=== PATIENT | male | born 1930 | race Caucasian/White ===

== ENCOUNTER 2017-05-01 13:42 | Inpatient (IN) | payer MEDICARE, OTHER ==
[~2017-05-01] VITALS: Ht 175.3 cm; Wt 63.1 kg
[~2017-05-01 13:42] MED LIST: ASPI-973 PO; CALC0.257 PO; CHOL100045 PO; DIAZ5TAB PO; DIPH25CA6 PO; FERR325C PO; GABA-504 PO; INSU100I SUBQ; INSU100I13 SUBQ; LEVO50TA6 PO; MULT-1018 PO; SIMV10TA4 PO; TAMS0.4C98 PO
[2017-05-01 13:45] VITALS: BP 150/74; PULSE 79; RESP 18; O2SAT 99
[2017-05-01 14:59] LABS: BASOPHILS % (AUTO) 0.4 % (0-3); EOSINOPHILS % (AUTO) 0.1 % (0-5); MONOCYTES % (AUTO) 7.5 % (4-12); Mean Corpuscular Hemoglobin 31.1 pg (27.0-35.0); Mean Corpuscular Volume 94.1 fL (81-100); NEUTROPHILS % (AUTO) 71.9 % (40-74); Platelet Count 349 bil/L (150-400)
--- NOTE | 2017-05-01 15:15 | ED.REPORT ---
HPI-General Illness Date of Service May 01, 2017 ED Provider: Christopher Barney MD An 86 year old male with a history of end stage renal disease, lymphoma, diabetes and hypertension presents to the ED complaining of possible cellulitis. The pt noticed redness around the fistula site in his left arm four days ago. He was seen in an ED three days ago and prescribed Keflex and doxycycline. Despite taking these as prescribed, the redness and pain have worsened and he has been experiencing decreased appetite, nausea and vomiting. He denies chest pain, dysuria, fever or chills. The fistula was placed 18 months ago but the pt is not on dialysis yet. Nursing Notes Stated Complaint: POSS CELLULITIS Chief Complaint: Skin Rash/Abscess Nursing Notes Reviewed: Yes Allergies: Coded Allergies: No Known Allergies (Verified Allergy, Unknown, 11/15/16) Scheduled Aspirin (Aspirin) 81 Mg Tablet 81 MG PO DAILY Calcitriol (Rocaltrol) 0.25 Mcg Capsule 1 MCG PO DAILY Cephalexin (Cephalexin) 250 Mg Capsule 250 MG PO TID Cholecalciferol (Vitamin D3) (Vitamin D) 1,000 Unit Capsule 1,000 UNIT PO DAILY Doxycycline Monohyd (Doxycycline Monohyd) 100 Mg Tablet 100 MG PO BID Gabapentin (Gabapentin) 400 Mg Capsule 400 MG PO BID Insulin Glargine (Lantus U100 Solostar Insulin Pen) 100 Unit/1 Ml Insuln.pen 10 UNIT SUBQ QAM Levothyroxine (Levothyroxine) 50 Mcg Tablet 50 MCG PO DAILY Multivitamin (Multi Vitamin Daily) 1 Each Tablet 1 EACH PO DAILY Sertraline HCl (Sertraline) 50 Mg Tablet 50 MG PO DAILY Simvastatin (Simvastatin) 10 Mg Tablet 20 MG PO HS Sodium Bicarbonate (Sodium Bicarbonate) 650 Mg Tablet 650 MG PO TID Tamsulosin (Flomax) 0.4 Mg Capsule 0.4 MG PO DAILY Scheduled PRN Diazepam (Valium) 5 Mg Tablet 5 MG PO HS PRN PRN Insomnia Insulin Aspart (NovoLOG U-100 Pen) 100 Unit/Ml Insuln.pen 0-5 UNITS SUBQ TIDWM PRN PRN sliding scale General Time Seen by : 15:14 Chief Complaint Other (Possible cellulitis) Hx Obtained From: Patient Arrived By: Walk-in Sudden in Onset?: No Symptom Duration: Since onset Recent Healthcare: No recent hospitalization, Recent doctor visit Past Medical History Past Medical History 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, in remission, 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 Chronic kidney disease Stage 4 Celiac Disease Diabetes mellitus type II with neuropathy, insulin dependent Hypothyroidism Hyperlipidemia Hypertension CAD with stenting of the RCA Chronic prostatitis Prostate cancer GERD Gastric ulcer Past Surgical History EGD - October 2008 Esophageal dilation - October 2008 TURP Cardiac catheterization with placement of drug eluting stent to the proximal segment of the RCA - October 2008 Fistua L arm Family History non-contributory Smoking History Never Smoker Social History Alcohol Use: 1-3 per week Drug Use: Denies drug use Other Social History: Lives in [facility] Ambulatory Status Independent Review of Systems decreased appetite Full Review of Systems Constitutional: Denies: Chills, Fever Respiratory: Denies: Non-productive cough, Shortness of breath Cardiovascular: Denies: Chest pain GI: Reports: Nausea, Vomiting Musculoskeletal: Reports: Extremity pain (left arm), Denies: Back pain Skin: Reports Rash Complete sys rev & neg: except as marked. Physical Exam Vital Signs Vital Signs Date Time Temp Pulse Resp B/P Pulse Ox O2 Delivery O2 Flow Rate FiO2 05/01/17 13:45 35.4 79 18 150/74 99 Room Air Initial VS: Reviewed General/Constitutional: Awake, Alert Head / Eyes: Atraumatic, Normocephalic, PERRL, EOMI ENT: Atraumatic, Airway patent, Mucous membranes moist Neck: Atraumatic, Supple, Full range of motion Respiratory / Chest: Atraumatic, Breath sounds NL, Breath sounds = bilat, No respiratory distress Cardiovascular: Heart rate NL, Regular rhythm, Heart sounds NL Abdomen: Atraumatic, Soft, Non-tender Back: Atraumatic, Full range of motion Upper Extremities Upper Extremity / MS: Neurologic intact, Vascular intact fistula, left mid biceps erythema of the flexor aspect of the left arm from the mid biceps to just distal to the elbow palpable pulse axillary adenopathy Lower Extremity / Pelvis / MS: Atraumatic, Full range of motion Skin: Warm, Dry Neurologic: Oriented X3, Speech NL, No motor deficits, No sensory deficits Psychiatric: Affect NL, Mood NL Interpretation & Diagnostics Interpretation & Diagnostics: Dialysis Shunt Duplex US: no DVT AV fistula mostly clotted Lab Results Interpretation Result Diagram: 05/01/17 1456 05/01/17 2120 Test 05/01/17 14:56 White Blood Count 7.2th/mm3 (3.8-10.1) Red Blood Count 3.70mil/mm3 (4.40-5.80) Hemoglobin 11.5g/dL (13.8-17.2) Hematocrit 34.8% (41.0-50.0) Mean Corpuscular Volume 94.1fL (81-100) Mean Corpuscular Hemoglobin 31.1pg (27.0-35.0) Mean Corpuscular Hemoglobin Concent 33.0% (32.0-37.0) Red Cell Distribution Width 14.1% (12.3-15.4) Platelet Count 349bil/L (150-400) Neutrophils (%) (Auto) 71.9% (40-74) Lymphocytes (%) (Auto) 20.0% (14-46) Monocytes (%) (Auto) 7.5% (4-12) Eosinophils (%) (Auto) 0.1% (0-5) Basophils (%) (Auto) 0.4% (0-3) Osmolality 334 (275-300) Phosphorus Level 6.0mg/dL (2.5-4.9) Total Bilirubin 0.5mg/dL (0.0-1.2) Aspartate Amino Transf (AST/SGOT) 25U/L (0-50) Alanine Aminotransferase (ALT/SGPT) 26U/L (0-44) Alkaline Phosphatase 149U/L (25-160) Troponin T 0.041ug/L (0.0-0.011) Total Protein 6.8g/dL (6.4-8.4) Albumin 3.8g/dL (3.4-5.0) Ketones Small (Negative) Lab Results Interpretation: venous pH: 7.212 ECG Interpretation ECG Interpretation: normal sinus rhythm with a rate of 74 prolonged ND interval left axis deviation Time: 14:37 Interpreted by: ED physician X-Ray Chest Interpretation Chest Xray Interpretation: IMPRESSION: No acute disease Dictated by: John Alexander M.D. on 05/01/2017 at 15:28 Approved by: John Alexander M.D. on 05/01/2017 at 15:29 Interpretation / Wet Read by: Interpret - Radiologist Re-Eval/Medical Decision Med Decision/Clinical Course 86-year-old male with chronic kidney disease who has dialysis access in place that is not presently being used. The involved arm appears cellulitic, he is also noted to have thrombosis of the AV fistula. A vein thrombosis of the upper Michael been ruled out. He is hemodynamically stable and nontoxic, we have obtained blood cultures and started vancomycin and Zosyn. We noted a marked hyperglycemia and acidosis, diabetic ketoacidosis was considered however overall the patient appears nontoxic is not tachypneic and revealed his acidosis was much more likely related to renal disease. An insulin drip was started and nephrology was consulted. The also given IV fluids. Is admitted to the hospitalist service with nephrology consultation. Source of Hx: Old records Time of Eval: 16:12 Patient Status: Condition improved Re-Evaluation/Progress Note: Pt rechecked, who is restinng comfortable. The diagnosis and plan for admission are discussed. The pt understands and agrees with the plan. All questions are addressed at this time. Consultation #1: Referral / Consult Name: Madelyn Olivas MD Consulted With: Nephrology Call Returned at: 16:00 Note: Consulted with Dr. Davis, nephrology, regarding pt's case. Dr. Davis agrees to consult and will see the pt in the ED. Consultation #2: Referral / Consult Name: Madelyn Olivas MD Call Returned at: 16:31 Chemical Pumper: Agrees with eval, Agrees with plan Note: Spoke with Dr. Davis regarding pt's case. Dr. Davis agrees with the evaluation and recommends admission. Consultation #3: Referral / Consult Name: Prieto Collier MD Consulted With: Hospitalist Call Returned at: 17:48 Chemical Pumper: Agrees with eval, Agrees with plan, Accepts admit Note: Spoke with Dr. Collier, hospitalist, regarding pt's case. Dr. Collier agrees with the evaluation and agrees to admit the pt. Counseled Regarding: Diagnosis, Lab results, Need for admission Discharge & Departure Primary Impression: Cellulitis Site of cellulitis: extremity Site of cellulitis of extremity: upper extremity Laterality: left Qualified Code: L03.114 - Cellulitis of left upper limb Additional Impressions: Hyperglycemia Clotted dialysis access Encounter type: initial encounter Qualified Code: T82.49XA - Other complication of vascular dialysis catheter, initial encounter Disposition: ADMITTED TO HOSPITAL (ERASED) Discharge Condition All VS Reviewed: Yes Condition: Stable Referrals: Yovany Diamond MD (PCP) Jodi Menchaca MD Attestation Portions of this note were transcribed by Johnnie Moreau. Dr. Ector Gaines personally performed the history, physical exam and medical decision-making; I reviewed and confirmed the accuracy of the information in the transcribed note. Signed by: Stefan Zendejas, 05/01/2017 and 2014. copies to: Jodi Menchaca MD; Yovany Diamond MD, Donald L MD May 01, 2017 15:15 JOHNNIE MOREAU May 01, 2017 15:26 complication of vascular dialysis catheter, initial encounter Disposition: ADMITTED TO HOSPITAL (ERASED) Discharge Condition All VS Reviewed: Yes Condition: Stable Referrals: Yovany Diamond MD (PCP) Jodi Menchaca MD Attestation Portions of this note were transcribed by Johnnie Moreau. Dr. Ector Gaines personally performed the history, physical exam and medical decision-making; I reviewed and confirmed the accuracy of the information in the transcribed note. Signed by: Stefan Zendejas, 05/01/2017 and 1516. copies to: Jodi Menchaca MD; Yovany Diamond MD, Donald L MD May 01, 2017 15:15 JOHNNIE MOREAU May 01, 2017 15:26
--- NOTE | 2017-05-01 15:30 | DRSVH ---
PROCEDURE: X-RAY CHEST ONE VIEW, PORTABLE ([id number]) INDICATIONS: sepsis TECHNIQUE: One view of the chest was acquired. COMPARISON: [facility], CR, XR CHEST 1VW (PORTABLE), 04/30/2016, 14:06. FINDINGS: Surgical changes and devices: None. Lungs and pleura: No pleural effusions or pneumothorax. Lungs are clear. Diffuse scarring/atelectas is Mediastinum: Mediastinal contours appear normal. Heart size is normal. Bones and chest wall: No suspicious bony lesions. Overlying soft tissues appear unremarkable. Late ral curvature of the spine IMPRESSION: No acute disease Dictated by: John Alexander M.D. on 05/01/2017 at 15:28 Approved by: John Alexander M.D. on 05/01/2017 at 15:29
[2017-05-01 15:44] LABS: Magnesium 1.4 mg/dL (1.6-2.6); TROPONIN T 0.041 ug/L (0.0-0.011)
[2017-05-01] MEDS ORDERED: Sodium Bicarb 8.4% (10 mEq) 1 mEq/mL 10 mL Syringe IVPUSH ONE (16:05)
[2017-05-01] MEDS ORDERED: 0.9% Sodium Chloride 1,000 ML IV ONE ×2 (16:05→16:45)
[2017-05-01] MEDS ORDERED: Piperacillin-Tazo 3.375 Gm Inj 3.375 GM in Dextrose 5% Minibag Plus 50 ML IV ONE (16:05)
[2017-05-01] MEDS ORDERED: Insulin Human REGular Inj 100 UNIT in 0.9% Sodium Chloride-Pha MIX 100 ML IV SCH (16:09)
--- NOTE | 2017-05-01 16:32 | ABG ---
DateTimeAnalyzed 16:23:00 -_ pH ____7.212 - pCO2 ___33.3__ -mmHg pO2 ___39.6__ -mmHg HCO3- ___12.9__ -mmol/L ABE __-13.7__ -mmol/L tHb ___12.0__ -g/dL O2Hb ___63.9__ -% COHb ____1.7__ -% MetHb ____1.4__ -% sO2 ___65.9__ -% FIO2 ___21.0__ -% Drawn By NSG - Date/Time Notified____ 16:31:00 -_ Notified Whom ___DR. SLACK - Age 78 -years B 758 -mmHg tO2 ___10.8__ -Vol% Prieto test N/A -
[2017-05-01] MEDS ORDERED: SODI650T PO (16:50)
[2017-05-01] MEDS ORDERED: CEPH250C PO (16:50)
[2017-05-01] MEDS ORDERED: CALC0.257 PO (16:50)
[2017-05-01] MEDS ORDERED: SERT50TA9 PO (16:50)
[2017-05-01] MEDS ORDERED: DOXY-232 PO (16:50)
[2017-05-01 17:04] VITALS: BP 148/92; PULSE 76; RESP 20; O2SAT 97
[2017-05-01 17:08] LABS: APPEARANCE,URINE CLEAR (CLEAR,HAZY); COLOR,URINE STRAW (YELLOW); OCCULT BLOOD,URINE SMALL (NEGATIVE); PH,URINE 5.5 (5.0-8.0); UROBILINOGEN,URINE NORMAL (NORMAL)
[2017-05-01 17:21] VITALS: BP 148/92; PULSE 76; RESP 20; O2SAT 97
--- NOTE | 2017-05-01 17:30 | DRSVH ---
PROCEDURE: US DUPLEX DOPPLER OF DIALYSIS SHUNT ([id number]) INDICATIONS: swelling, erythema, please check fistual also TECHNIQUE: Color and pulse Doppler interrogation was performed of the upper extremity arteriovenous fistula, wit h image documentation. COMPARISON: None. FINDINGS: Flow the brachial artery proximal to the anastomosis is triphasic and 114 cm/s. The flow of the brach ial artery distal to the anastomotic site is triphasic and 145 cm per sec. The fistula show some biphasic flow and decreased velocity of 43 cm/s. The distal to the anastomosis the venous limb shows occlusive clot. IMPRESSION: There is clot in the venous limb of the vessels involved with a graft. This involves the cephalic vein with clot along the level of the arm. More centrally towards the shoulder the cephalic vein becomes patent and compressible. Dictated by: Derick Baig M.D. on 05/01/2017 at 17:21 Approved by: Derick Baig M.D. on 05/01/2017 at 17:28
[2017-05-01] MEDS ORDERED: Senna-Docusate 8.6-50 mg Tablet PO PRN (17:40)
[2017-05-01] MEDS ORDERED: Polyethylene Glycol (PEG) 17 Gm Powder PO PRN (17:40)
[2017-05-01] MEDS ORDERED: Alum-Mag Hydrox-Simeth 30 mL Suspension PO PRN (17:40)
[2017-05-01] MEDS ORDERED: Ondansetron 2 mg/mL 2 mL Inj IVPUSH PRN (17:40)
--- NOTE | 2017-05-01 17:51 | CONS ---
[address] [address] CONSULTATION REPORT PATIENT: HECTOR DEL RIO : 1930 MR#: [id number] ADMIT: 05/01/2017 JOB ID: [id number] DATE OF SERVICE: 05/01/2017 NEPHROLOGY CONSULTATION: REQUESTING PHYSICIAN: Christopher Barney MD REASON FOR CONSULTATION: Management of electrolyte disturbance. CHIEF COMPLAINT: Left arm swelling and redness. 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 He is the patient of Dr. Menchaca. He had history of chronic kidney disease stage 4. He has had left AV fistula for almost two years. It has not been used. His last visit with Dr. Menchaca was in March. At that time his serum creatinine was 2.67. According to Dr. 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 He had history of intestinal lymphoma and he received chemotherapy; the last treatment was eight years ago. He has been in remission since. Last visit with Dr. Menchaca he noted that he had a functioning left upper AV fistula. He reported that he has noticed redness and swelling around the fistula site for five days prior to the admission. He went to the Urgent Care three days ago and was prescribed Keflex and doxycycline. The patient has not seen any improvement despite taking the medications. He has experienced nausea and vomiting x3. He has poor appetite. His blood sugar was elevated; at home was 599. The patient not feeling well, therefore he came to the hospital for further investigation. Apparently his initial vitals showed a temperature of 35.4, blood pressure 150/74. His initial blood work showed sodium of 125, potassium of 5.9, blood sugar of 716. Bedside Doppler of the fistula reporting swelling soft tissue. No cysts or abscess formation. Reporting clotted AV fistula. Initial BUN and creatinine were 72 and 3.19, respectively. I have discussed with Dr. Banrey the ED physician we are planning to start IV insulin drip and fluid replacement. The patient will be started on broad-spectrum IV antibiotics as well. PAST MEDICAL HISTORY: 1. Chronic kidney disease stage 4. Last serum creatinine in March was 2.67, estimated GFR of 20 mL/minute per 1.73 mm2. 2. Intestinal lymphoma status post bowel resection. 3. Type 2 diabetes with neuropathy. He is insulin-dependent. 4. Hypertension. The patient has been diagnosed with type 2 diabetes for at least 40 years. 5. Dyslipidemia. 6. Coronary artery disease, status post stenting. 7. Prostate cancer. 8. GERD. 9. Gastric ulcers. PAST SURGICAL HISTORY: 1. Status post AV fistula on the left upper extremity in May 2015. 2. Status post TURP. 3. Esophageal dilatation. 4. Cardiac catheterization with placement of drug-eluting stent of the proximal segment of RCA in October 2008. FAMILY HISTORY: No kidney disease in the family. Negative for cardiac disease. SOCIAL HISTORY: Denies current use of tobacco or illicit drugs. He drinks socially. He drinks one beer once a week. MEDICATIONS: Aspirin, calcitriol, Keflex, vitamin D3, Valium, doxycycline, gabapentin, insulin, NovoLog, Lantus, levothyroxine, multivitamin, sertraline, simvastatin, sodium bicarbonate, tamsulosin. ALLERGIES: No known drug allergies. REVIEW OF SYSTEMS: Fourteen point review of system was performed. PHYSICAL EXAMINATION: Vitals: Temperature 35.4, pulse 79, respiratory rate 18, blood pressure 150/74, O2 sat 99% on room air. General appearance: Awake, alert, oriented x3. No acute distress. HEENT: Mild pallor. Anicteric sclerae. Atraumatic. Dry mucous membranes. PERRLA. No JVD. No lymphadenopathy. No thyroid enlargement. Heart: Regular rhythm. Normal S1, S2. No murmurs, rubs, or gallops. Lungs: Clear to auscultation bilaterally. No wheezing. No rhonchi. Abdomen: Soft, scaphoid abdomen. Nontender, nondistended. No hepatosplenomegaly. Extremities: No lower extremity edema. Positive for swelling on the left upper extremity and positive for erythema around the AV fistula. LABORATORY: CBC: Hemoglobin 11.5, WBC 7.2, platelets 349. Sodium 145, potassium 5.9, chloride 85, bicarb 9, BUN 72, creatinine 3.19. IMAGING: Chest x-ray: No acute disease. ASSESSMENT: 1. Acute kidney injury on chronic kidney disease stage 4 secondary to intravascular volume depletion. 2. Hyperosmolar hyponatremia. Serum osmo of 334. 3. Hyperkalemia secondary to insulin insufficiency, hyperglycemia, and metabolic acidosis. 4. Hyperglycemia. Suspected DKA. 5. Skin and soft tissue infection. 6. Type 2 diabetes. 7. History of hypertension. 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 9. Anion gap metabolic acidosis secondary to ketoacidosis and uremia. Current pH is 7.2. We do not have a sodium bicarb available at the moment and sodium acetate has to be mixed in the D5 water which is not feasible given the hyperglycemia. PLAN: Per renal standpoint, we would like to restore intravascular compartment by giving normal saline 1 L bolus and run at 150 mL/hour. We will order blood culture x2. He will receive broad-spectrum IV antibiotics. I would recommend to start insulin drip. We will repeat his BMP later on tonight. I do not think he needs urgent hemodialysis. We will continue our medical management first.
[2017-05-01] MEDS ORDERED: 0.9% Sodium Chloride 1,000 ML IV SCH (18:00)
--- NOTE | 2017-05-01 18:33 | PCM.HPMED ---
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 Patient has been seen twice at the clinic and was prescribed some Keflex as well as doxycycline with improvement of his cellulitis however, this morning his noticed that his left arm was significantly more erythematous and the patient stated it was much more painful. Patient denies any fevers, chills, drenching sweats but has noted nausea after starting his antibiotics and has been vomiting quite frequently. He has also noticed a decrease in his appetite and decreased by mouth intake. The patient is not currently on dialysis and he is followed by . Per the patient measured his blood sugar at home it was 599. In the emergency department his vital signs were stable. His laboratory evaluation was notable for a blood sugar of 716, venous pH of 7.2, potassium of 5.9, and anion gap of 31 and normal lactate and worsening creatinine of 3.19. He was initiated on 2 L normal saline, vancomycin and Zosyn. Dr. Davis of nephrology was consulted by emergency department for evaluation of his worsening kidney function. Review of Systems: A comprehensive review of systems was conducted with the patient and found to be negative except as above in the History of Present Illness. Allergies Coded Allergies: No Known Allergies (Verified Allergy, Unknown, 11/15/16) Home Medications Bethel Wilkes N. [id number] 1930 04/29/2017 01:00 PM 10/18 Start Date Medication Directions Stop Date 12/13/2011 aspirin 81 mg Tab take 1 tablet (81MG) by oral route every day 09/20/2010 Calcio Jade 500 mg Tab calcitriol 0.25 mcg capsule take 1 capsule by oral route every 2 days 04/28/2017 cephalexin 250 mg tablet take 1 tablet by oral route every 8 hours 05/04/2017 12/10/2016 diazepam 5 mg tablet take 1 tablet by oral route every bedtime as needed insomnia 04/28/2017 doxycycline monohydrate 100 mg tablet take 1 tablet by oral route 2 times every day 05/04/2017 08/06/2016 Lantus Solostar 100 unit/mL (3 mL) subcutaneous insulin pen inject 9 by subcutaneous route as per insulin protocol 07/14/2009 Multiple Vitamins Tab take 1 tablet by ORAL route every day with food 07/02/2016 NEURONTIN 400MG CAPSULES CAPSULE TAKE 1 CAPSULE BY ORAL ROUTE 2 TIMES EVERY DAY 08/22/2016 NOVOLOG FLEXPEN 100U/ML 3ML MG INJECTABLE INJECT BY SUBCUTANEOUS ROUTE 2 TO 5 UNITS BEFORE MEALS FOR DIABETES. 09/11/2012 One Touch Ultra Test Strips apply by Combination route 5 times every day 09/18/2016 OneTouch Ultra Test strips apply by Combination route 5 times every day 08/06/2016 sertraline 50 mg tablet take 1 tablet by oral route every morning for mood. 11/14/2016 simvastatin 20 mg tablet take 1 tablet by oral route every day in the evening sodium bicarbonate 650 mg tablet take 1 Capsule by Oral route 3 times every day 08/22/2016 SURE CMFRT 31G 12/27 PEN NEEDLES MG INJECTABLE INJECT DIRECTED 02/20/2017 SYNTHROID 0.05MG TABLET TABLET TAKE 1 TABLET (50MCG) BY ORAL ROUTE EVERY DAY FOR THYROID 11/06/2016 tamsulosin 0.4 mg capsule take 1 capsule by oral route every day 1/ 2 hour following the same meal each day Vitamin D3 take 2 (600 unit) tablets daily PMH Hypertension Hypothyroidism CKD (chronic kidney disease) Coronary artery disease status post stent Type 2 diabetes mellitus with stage 4 chronic kidney diseasee) Hyperlipidemia Prostate cancer on hormone suppression IV diffuse large B-cell lymphoma in remission Surgical History TURP Cardiac cath Mohs surgery Bowel resection Family History Brother has diabetes mellitus. Social History Hx Alcohol Use: Yes (1 beer a week) Hx Substance Use: No Hx Tobacco Use: No Smoking Status: Never Smoker Exam Vital Signs Vital Sign - Last Date Time Temp Pulse Resp B/P Pulse Ox O2 Delivery O2 Flow Rate FiO2 05/01/17 17:21 35.4 76 20 148/92 97 Room Air Exam General: No acute distress, well-developed, well-nourished, appropriately interactive HEENT: Normocephalic, atraumatic. External ears without defect. Pupils equal, round, and reactive to light and accommodation. Anicteric sclerae, moist conjunctivae, and no lid lag. Oropharynx free of erythema and cobble stoning with moist mucosa. Neck: Supple with full range of motion. No jugular venous distension. No bruits. No lymphadenopathy or thyromegaly. Cardiovascular: Regular rate and rhythm with soft systolic murmur. Pulmonary: Clear to auscultation bilaterally with no crackles, wheezes, or rhonchi. Normal respiratory effort with no use of accessory muscles. Abdomen: Bowel tones present. Thin. Soft, nontender, nondistended. No hepatosplenomegaly or masses appreciated. Extremities: No clubbing, cyanosis. Left arm fistula without bruit, with erythema and warmth. Skin: Normal temperature, turgor, and texture except as noted above. Neurological: Cranial nerves grossly intact. Normal muscle strength, tone, and bulk. Reflexes, coordination, and sensory function within normal limits. No known gait impairment. Psychiatric: Normal mood and affect. Alert and oriented to person, place, and time. Lab and Diagnostics Labs Anion gap 31 Lactic acid 1.8 Magnesium 1.4 Ketones in the blood Result Diagram: 05/01/17 1456 05/01/17 1456 X-Rays, CTs and MRIs X-RAY CHEST ONE VIEW, PORTABLE IMPRESSION: No acute disease Dictated by: John Alexander M.D. on 05/01/2017 at 15:28 US DUPLEX DOPPLER OF DIALYSIS SHUNT IMPRESSION: There is clot in the venous limb of the vessels involved with a graft. This involves the cephalic vein with clot along the level of the arm. More centrally towards the shoulder the cephalic vein becomes patent and compressible. Dictated by: Derick Baig M.D. 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 Diabetic ketoacidosis secondary to left arm cellulitis in a type II diabetic, present remission, active -Anion gap 31, venous pH 7.2 -0.9% NaCL at 250 mL/hr -When blood glucose <250 mg/dL AND anion GAP is > 12 switch to D5 NS at 150mL/ hr, contact provider if glucose is consistently <150 for 1 hour -0.1 U/kg/hr regular insulin continued until AG <12. If serum glucose does not decrease by 50-70 mg/dL in 1 hr after starting drip double IV insulin infusion every hour until there is a decrease of 50-70 mg/dL of glucose. -When glucose reaches 200 change insulin rate to 0.02-0.05 U/kg/hr to keep glucose between 150-200 until anion gap is <12. -When anion gap <12 call provider for subcutaneous insulin orders. -WAIT 1 HOUR BEFORE STOPPING THE INSULIN DRIP AFTER GIVING LONG ACTING INSULIN -BMP Q4 while anion gap >12 -If K <4.5, contact provider -DO NOT STOP PROTOCOL DUE TO POTASSIUM DECLINE UNLESS IT DROPS TO BELOW 3 Acute kidney injury on chronic kidney disease stage IV secondary to prerenal azotemia secondary to DKA with polyuria, vomiting and poor by mouth intake, present on admission, active -Continue with IV fluids as above. We will continue to monitor BMP. -Discussed case with Dr. Davis, and patient does not require dialysis at this time Left arm cellulitis, present on admission, active -Blood cultures obtained -Procalcitonin ordered -Patient given Vancomycin and Zosyn in the ED. Will continue Vancomycin but will switch to Cefepime given the patient's OG. 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 Davis, no indication for heparinization at this time -Patient will need to undergo fistula repair tomorrow by interventional radiology. Elevated troponin of uncertain significance, present on admission, active -Likely secondary to demand ischemia from DKA and cellulitis. -We will recheck tomorrow. Patient is denying any chest pain. CODE STATUS: DNR/DNI, confirmed with the patient today. Patient is admitted under inpatient status with expected length of stay greater than 2 midnights due to severity of presenting symptoms, risk of adverse event, and complexity of treatment plan. Pain Evaluation: Adequate Pain Control VTE Prophylaxis: Sub-Q Heparin (Unfractionated) Resuscitation Status: DNR/DNI:Do Not Resuscitate/Intubate Time spent 60 minutes Attending Statement The patient was seen and examined with staff. Agree with all attached documentation. Chanel Stoll DO May 01, 2017 17:51 Prieto Collier MD May 02, 2017 16:47
[2017-05-01] MEDS ORDERED: Cefepime 1,000 MG in Dextrose 5% Minibag Plus 50 ML IV SCH (19:00)
[2017-05-01 19:34] LABS: Magnesium 1.4 mg/dL (1.6-2.6)
[2017-05-01 19:47] VITALS: BP 128/69; PULSE 88; RESP 20; O2SAT 97
[2017-05-01] MEDS ORDERED: Magnesium Sulf 2 Gm/50mL Water 2 GM in IV Premix 1 EACH IV ONE (20:05)
[2017-05-01] MEDS ORDERED: HYDROcodone-APAP 5-325 mg Tablet PO PRN (20:05)
[2017-05-01] MEDS: Insulin Human REGular 100 Units/100 mL NS IV SCH ×2 (20:25)
[2017-05-01 20:30] VITALS: BP 136/64; PULSE 80; RESP 15; O2SAT 98
[2017-05-01] MEDS ORDERED: Cefepime Inj 2,000 MG in Dextrose 5% Minibag Plus 100 ML IV SCH (20:30)
[2017-05-01] MEDS: 0.9% Sodium Chloride 1,000 ML IV SCH (20:47)
[2017-05-01] MEDS: Heparin 5,000 Unit/mL Inj SUBQ SCH (21:01)
[2017-05-01] MEDS: CEFEPIME IV SCH (21:25)
[2017-05-01] MEDS: SODIUM CHLORIDE 0.9% IV SCH (21:25)
--- NOTE | 2017-05-01 22:02 | PCM.CONPHA ---
Assessment/Plan Assessment/Plan Pharmacy Kinetic Dosing Vancomycin Indication: CELLULITIS Vanc goal trough: 10-15 mcg/mL Pt wt: 65.9 kg Other ABX: CEFEPIME Cultures: BLOOD/MRSA SCr: 3.19 mg/dL Assessment/Plan: - Loading dose of Vancomycin 750 mg given -Will continue Vancomycin 750 mg Q48H with random trough scheduled 05/02 @0500 Pharmacy appreciates consult and will continue to monitor. Cleopatra Kerns PharmD May 01, 2017 22:02
[2017-05-01] MEDS ORDERED: D5W1/2NS 1,000 mL IV PRN (22:05)
[2017-05-01 23:12] VITALS: BP 120/54; PULSE 66; RESP 15; O2SAT 99
[2017-05-02] MEDS: 0.9% Sodium Chloride 1,000 ML IV SCH ×5 (00:23→14:15)
[2017-05-02] MEDS: Insulin Human REGular 100 Units/100 mL NS IV SCH ×2 (00:25)
[2017-05-02 03:28] VITALS: BP 121/48; PULSE 61; RESP 14; O2SAT 99
--- NOTE | 2017-05-02 04:45 | NUR ---
Admit/DKA 2029 - Patient admitted to room 2020, admision completed and oriented to room, no distress noted, last blood sugar was 748 before leaving ED, pharmacy notified to mix all medications in NS instead of D5W, insulin gtt infusing at 13 units/hr, see nursing flow sheet for fluids and rates of IVF and insulin gtt. No bruit felt in left arm fistula, patient stated he has no pain in left arm, just sore and it just hurts if it gets bumped. 0255, BS down to 90 and insulin gtt turned off for a bit, rechecked and BS 111 and 133, D10 rate adjusted per protocol, last corrected anion gap 19.5 with Albumin 3.8. NS @ 250ml/hr infusing, patient slept most of the night, very pleasant and cooperative, no needs at this time, will continue to monitor, no distress noted, VSS, sats 99% on RA.
[2017-05-02] MEDS ORDERED: Vancomycin Serum Trough XX ONE (05:00)
[2017-05-02 07:21] VITALS: BP 130/68; PULSE 57; RESP 15; O2SAT 100
--- NOTE | 2017-05-02 07:54 | DRSVH ---
PROCEDURE: US RENAL SONOGRAM INDICATIONS: OG TECHNIQUE: Real-time scanning was performed of the kidneys and bladder, with image documentation. COMPARISON: [facility], [place], 06/29/2015 renal ultrasound. 02/06/2013 CT FINDINGS: Kidneys: Kidneys are normal in size. Right kidney measures 8.1 cm long; left kidney measures 10.2 c m long. Right renal cortical thickness is 0.7 cm; left renal cortical thickness is 0.9 cm. Renal co rtical echotexture is normal. No hydronephrosis or nephrolithiasis. No suspicious solid mass lesion s. Simple right renal cyst measuring 7 mm. Bladder: The patient voided immediately prior to the study therefore no prevoid bladder volume was ob tained. Throughout the examination, the bladder measured 74-108 mL. Pre-void images demonstrate no i ntraluminal masses or stones. Ureteral jets identified. Miscellaneous: No free pelvic fluid. There is a complex right pelvic fluid filled mass measuring 6. 2 x 2.6 x 3.8 CM. IMPRESSION: 1. Renal atrophy right greater than left. No hydronephrosis, ureterectasis, or calculi. 2. 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 Dictated by: Ritesh Becker M.D. on 05/02/2017 at 7:47 Approved by: Ritesh Becker M.D. on 05/02/2017 at 7:51
[2017-05-02] MEDS: Vancomycin Dose per Pharmacist XX SCH (08:29)
[2017-05-02] MEDS: Heparin 5,000 Unit/mL Inj SUBQ SCH ×2 (08:29→20:59)
[2017-05-02 09:10] LABS: Phosphorus 4.2 mg/dL (2.5-4.9)
[2017-05-02] MEDS: SODIUM CHLORIDE 0.9% IV SCH ×2 (10:00→20:58)
[2017-05-02] MEDS: CEFEPIME IV SCH ×2 (10:00→20:58)
--- NOTE | 2017-05-02 12:02 | PCM.PNNEPH ---
Subjective Date of Service May 02, 2017 Subjective Less swelling on left arm. (+) redness/warmth. Kidney function and BS have improved. Exam Vital Signs Vital Sign - Last Date Time Temp Pulse Resp B/P Pulse Ox O2 Delivery O2 Flow Rate FiO2 05/02/17 07:21 36.4 57 15 130/68 100 Room Air Intake and Output 05/01/17 05/01/17 05/02/17 Cumulative From/Thru 15:00 23:00 07:00 05/01/17 13:45 - 05/02/17 04:42 Intake Total 1000 ml 3123 ml 4123 ml Output Total 400 ml 1175 ml 1575 ml Balance 600 ml 1948 ml 2548 ml Intake Oral 480 ml 480 ml IV Total 1000 ml 2643 ml 3643 ml Output Urine Total 400 ml 1175 ml 1575 ml # Voids 1 1 # Bowel Movements 0 0 Exam General appearance: Awake, alert, oriented x3. No acute distress. HEENT: Mild pallor. Anicteric sclerae. Atraumatic. Dry mucous membranes. PERRLA. No JVD. No lymphadenopathy. No thyroid enlargement. Heart: Regular rhythm. Normal S1, S2. No murmurs, rubs, or gallops. Lungs: Clear to auscultation bilaterally. No wheezing. No rhonchi. Abdomen: Soft, scaphoid abdomen. Nontender, nondistended. No hepatosplenomegaly. Extremities: No lower extremity edema. Positive for swelling on the left upper extremity and positive for erythema around the AV fistula. Lab and Diagnostics Result Diagram: 05/01/17 1456 05/02/17 1020 X-Rays, CTs and MRIs X-RAY CHEST ONE VIEW, PORTABLE IMPRESSION: No acute disease Dictated by: John Alexander M.D. on 05/01/2017 at 15:28 US DUPLEX DOPPLER OF DIALYSIS SHUNT IMPRESSION: There is clot in the venous limb of the vessels involved with a graft. This involves the cephalic vein with clot along the level of the arm. More centrally towards the shoulder the cephalic vein becomes patent and compressible. Dictated by: Derick Baig M.D. on 05/01/2017 at 17:21 Plan Impression 1. Acute kidney injury on chronic kidney disease stage 4 secondary to intravascular volume depletion. 2. Hyperosmolar hyponatremia. resolved. 3. Hyperkalemia secondary to insulin insufficiency, hyperglycemia, and metabolic acidosis. Resolved. 4. DKA. 5. Skin and soft tissue infection. 6. Type 2 diabetes. 7. History of hypertension. 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 9. Anion gap metabolic acidosis secondary to ketoacidosis and uremia. 10. Clotted AVF. Plan: Continue supportive treatment. Continue NS, IV abx. Once infection subsides, will consult IR to perform fistulogram and angioplasty. Madelyn Olivas MD May 02, 2017 12:02
[2017-05-02] MEDS: Vancomycin Inj 500 MG in 0.9% Sodium Chloride 100 ML IV SCH (12:12)
[2017-05-02 12:14] VITALS: BP 122/43; PULSE 57; RESP 17; O2SAT 99
--- NOTE | 2017-05-02 13:28 | NUR ---
NUTRITION ASSESSMENT: ASSESS: Pt is a 86yo M admitted for hyperglycemia and left arm cellulitis. On DKA protocol, currently NPO. Nephrology is involved for OG/CKD. 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 CO2 14, Bun 53, Authorization Coordinator 2.47, Glu 168, Ca 7.7, Alb 3.8 MEDS: Reviewed. GI: 0 BM SKIN: Fuentes 18, arm cellulitis CURRENT WTS: 84kg, BMI 27.3kg/m2, IBW 72.7kg DIET: NPO EST. NEEDS: OG Kcals: 2100-2520kcal/day (25-30kcal/kg) Pro: 65-85g/day (.8-1.0g/kg) NUTRITION DIAGNOSIS: 1.) Inadequate oral intake related to decreased ability to consume sufficient energy as evidenced by current NPO status 2.) Altered nutrition related lab values related to endocrine dysfunction as evidence by elevated BG levels and A1C of 8.4. NUTRITION INTERVENTION: 1.) Advance diet when medically appropriate. 2.) Pt does not meet IPDE criteria at this time. If DM diet education required, please order IPDE. Per chart review pt has had DM diet education in the past. MONITOR / EVAL: NPO, labs, GI, wt, POC, nutrition status. Will continue to monitor per high nutrition risk guidelines
--- NOTE | 2017-05-02 13:38 | NUR ---
DKA/left elbow swelling Patient denied having any pain or discomfort. Left arm at elbow level remained reddened and swollen- MD aware. Patient stated that the area was sensitive to the touch. Left arm was elevated on pillows and warm blanket was wrapped around the elbow and replaced periodically for warmth- patient stated improvement of his sensitivity to the touch-Continue antibiotic treatment as ordered. Continue DKA insulin protocol. Last anion gap was 16- MD ordered labs to be repeated at 1430 with ketones level. MD will re-evaluate for farther treatment based on lab results. Please refer for blood glucose monitoring and fluids management to flow sheets.
--- NOTE | 2017-05-02 14:13 | PCM.PNMED ---
Subjective Date of Service May 02, 2017 Subjective The patient's left arm is still sore and red. No fevers or chills. No problem with blood pressure overnight. He is breathing with difficulty and denies any chest pain. No nausea or abdominal pain or diarrhea. No overnight events Exam Vital Signs Vital Sign - Last Date Time Temp Pulse Resp B/P Pulse Ox O2 Delivery O2 Flow Rate FiO2 05/02/17 12:14 36.9 57 17 122/43 99 Room Air Intake and Output 05/01/17 05/01/17 05/02/17 Cumulative From/Thru 15:00 23:00 07:00 05/01/17 13:45 - 05/02/17 04:42 Intake Total 1000 ml 3123 ml 4123 ml Output Total 400 ml 1175 ml 1575 ml Balance 600 ml 1948 ml 2548 ml Intake Oral 480 ml 480 ml IV Total 1000 ml 2643 ml 3643 ml Output Urine Total 400 ml 1175 ml 1575 ml # Voids 1 1 # Bowel Movements 0 0 Exam Alert and oriented -3, no distress. Fluent speech Anicteric sclera. Lungs are clear with normal rate and effort Heart is regular without murmur gallop or rub Abdomen soft nontender, flat Extremities are free of edema. Skin is free of rash or lesions. Left arm has a fistula placed this area is red and warm but somewhat improved over yesterday. The fistula itself is coarse and somewhat tender. IVs and Medications Medications Reviewed: Medications were reviewed in detail Lab and Diagnostics Result Diagram: 05/01/17 1456 05/02/17 1020 X-Rays, CTs and MRIs X-RAY CHEST ONE VIEW, PORTABLE IMPRESSION: No acute disease Dictated by: John Alexander M.D. on 05/01/2017 at 15:28 US DUPLEX DOPPLER OF DIALYSIS SHUNT IMPRESSION: There is clot in the venous limb of the vessels involved with a graft. This involves the cephalic vein with clot along the level of the arm. More centrally towards the shoulder the cephalic vein becomes patent and compressible. Dictated by: Derick Baig M.D. 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 emergency department today from urgent care due to worsening left arm cellulitis at his fistula which started last Saturday. #. Diabetic ketoacidosis secondary to left arm cellulitis in a type II diabetic , present remission, active and improving. -Initial Anion gap 31, venous pH 7.2 The patient has improved his CO2 from 9 to about 15. This is partially related to his chronic kidney disease stage IV. We will recheck a keep toenail partially 6 hours after insulin drip at current rate. If ketones are clear we will consider transition to subcutaneous insulin later this afternoon. #. Acute kidney injury on chronic kidney disease stage IV secondary to prerenal azotemia secondary to DKA with polyuria, vomiting and poor by mouth intake, present on admission, active and improving. -Continue with IV fluids as above. We will continue to monitor BMP. -Discussed case with Dr. Davis, and patient does not require dialysis at this time We will continue IV fluids at a set rate of 75 per hour, normal saline. #. Left arm cellulitis, present on admission, active and improving. -Blood cultures obtained -Procalcitonin ordered -Patient given Vancomycin and Zosyn in the ED. Will continue Vancomycin but will switch to Cefepime given the patient's OG. We will continue cefepime and vancomycin for now. Cultures remain negative at this point. #. Hypovolemic hyponatremia, partially due to pseudohyponatremia due to hyperglycemia as well as dehydration, present on admission, active and improving. -IVF as above, decrease to 75 per hour. $. 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 Davis, no indication for heparinization at this time -Patient will need to undergo fistula repair tomorrow by interventional radiology. Fistula repair is being coordinated by nephrology. #. Elevated troponin of uncertain significance, present on admission, active -Likely secondary to demand ischemia from DKA and cellulitis. -We will recheck tomorrow. Patient is denying any chest pain. Follow clinically, no further workup at this time. CODE STATUS: DNR/DNI, confirmed with the patient today. Patient is admitted under inpatient status with expected length of stay greater than 2 midnights due to severity of presenting symptoms, risk of adverse event, and complexity of treatment plan. VTE Prophylaxis: Sub-Q Heparin (Unfractionated) VTE Mechanical Devices: Intermittant Pneumatic CD Resuscitation Status: DNR/DNI:Do Not Resuscitate/Intubate Prieto Collier MD May 02, 2017 14:13 CODE STATUS: DNR/DNI, confirmed with the patient today. Patient is admitted under inpatient status with expected length of stay greater than 2 midnights due to severity of presenting symptoms, risk of adverse event, and complexity of treatment plan. VTE Prophylaxis: Sub-Q Heparin (Unfractionated) VTE Mechanical Devices: Intermittant Pneumatic CD Resuscitation Status: DNR/DNI:Do Not Resuscitate/Intubate Prieto Collier MD May 02, 2017 14:13
[2017-05-02 15:33] VITALS: BP 127/50; PULSE 66; RESP 18; O2SAT 100
[2017-05-02] MEDS ORDERED: Glucose 40% Oral Gel 15 Gm Tube PO PRN (15:45)
[2017-05-02] MEDS ORDERED: Insulin GLARgine 100 Unit/mL Syringe SUBQ ONE (15:45)
--- NOTE | 2017-05-02 16:00 | NUR ---
Social Work- Initial Assessment/ Multidisciplinary Rounds Data: See Initial Assessment for more information. Pt is a 86 year old male admitted 05/01/17 for hyperglycemia, left arm cellulitis. Pt discussed in rounds. Pt continues with IV abx. Pt's insurance is [employer]. Pt's PCP Yovany Diamond MD. Pt's readmit risk score is 3. SW met with pt at bedside regarding discharge plan, SW role explained. Pt alert and oriented x3. Pt's capacity for self-care assessed. Pt resides at [facility]. Pt is independent with ADLs and self-care. Pt uses a walker at baseline and drives. Pt has no history of HH or SNF. Pt's POA is his daughter Monica Farris, no information on file. SW requested information be brought to place on file. Pt was provided with phone number and plan on whiteboard. Pt provided with discharge planning checklist and instructed to contact SW if needs arise. Pt agreeable. Pt to discharge home with daughter to transport via POV. No SW needs identified at this time. SW will continue to follow. Assessment: Pt who is independent at baseline. Plan: Pt to discharge home with daughter to transport via POV. No SW needs identified at this time. SW will continue to follow. ANTOINE Burgos Addendum: 05/02/17 at 1605 by MAYRA PAINTER SS Amended: Links added.
[2017-05-02] MEDS: Insulin LISPRO 300 Unit/3 mL Inj SUBQ SCH ×2 (17:48→21:06)
--- NOTE | 2017-05-02 18:14 | NUR ---
Transition to SUBQ insulin Patient was transitioned to SUBQ insulin. Anion gap at 16 x2 and blood ketones were negative based on 1430 lab draw. Patient denied having nausea- MD placed the patient on a diet. Vitals remained stable- MD transferred patient to PCC status.
[2017-05-02] MEDS ORDERED: Insulin GLARgine 100 Unit/mL Syringe SUBQ SCH (21:00)
[2017-05-02 21:11] VITALS: BP 144/64; PULSE 70; RESP 11; O2SAT 100
[2017-05-02 23:25] VITALS: BP 141/65; PULSE 66; RESP 13; O2SAT 100
[2017-05-03] VITALS (7 sets, daily range): BP systolic 134–152; BP diastolic 55–79; PULSE 55–74; RESP 12–20; O2SAT 98–100
[2017-05-03 03:38] LABS: Mean Corpuscular Hemoglobin 30.5 pg (27.0-35.0); Mean Corpuscular Volume 91.1 fL (81-100)
[2017-05-03] MEDS: 0.9% Sodium Chloride 1,000 ML IV SCH (05:43)
--- NOTE | 2017-05-03 05:47 | NUR ---
Cellulitis LUE red, mildly swollen, and tender to touch, though pt denies overt pain at this time. Able to rest between interventions. Mild hyperglycemia with BGs in 200s. Insulin administered as per sliding scale and HS dosing of Lantus. VSS, tele SR 70s with AVBI.
[2017-05-03] MEDS: Vancomycin Dose per Pharmacist XX SCH (08:30)
--- NOTE | 2017-05-03 10:01 | NUR ---
BREEZY signed at [id number].
[2017-05-03] MEDS: Insulin LISPRO 300 Unit/3 mL Inj SUBQ SCH ×4 (11:03→20:23)
[2017-05-03] MEDS: CEFEPIME IV SCH ×2 (11:03→20:20)
[2017-05-03] MEDS: SODIUM CHLORIDE 0.9% IV SCH ×2 (11:03→20:20)
[2017-05-03] MEDS: Heparin 5,000 Unit/mL Inj SUBQ SCH ×2 (11:05→20:20)
[2017-05-03] MEDS ORDERED: Insulin GLARgine 100 Unit/mL Syringe SUBQ ONE (11:35)
--- NOTE | 2017-05-03 12:54 | PCM.PNNEPH ---
Subjective Date of Service May 03, 2017 Subjective Doing better overall. Less pain, redness and swelling over left AVF. Exam Vital Signs Vital Sign - Last Date Time Temp Pulse Resp B/P Pulse Ox O2 Delivery O2 Flow Rate FiO2 05/03/17 12:23 36.8 74 18 152/55 98 Room Air Intake and Output 05/02/17 05/02/17 05/03/17 Cumulative From/Thru 15:00 23:00 07:00 05/01/17 13:45 - 05/03/17 05:43 Intake Total 3952 ml 1103 ml 9178 ml Output Total 1400 ml 1625 ml 4600 ml Balance 2552 ml -522 ml 4578 ml Intake Oral 250 ml 200 ml 930 ml IV Total 3702 ml 903 ml 8248 ml Output Urine Total 1400 ml 1625 ml 4600 ml # Voids 6 7 # Bowel Movements 0 0 Exam General appearance: Awake, alert, oriented x3. No acute distress. HEENT: Mild pallor. Anicteric sclerae. Atraumatic. Dry mucous membranes. PERRLA. No JVD. No lymphadenopathy. No thyroid enlargement. Heart: Regular rhythm. Normal S1, S2. No murmurs, rubs, or gallops. Lungs: Clear to auscultation bilaterally. No wheezing. No rhonchi. Abdomen: Soft, scaphoid abdomen. Nontender, nondistended. No hepatosplenomegaly. Extremities: No lower extremity edema. Positive for swelling on the left upper extremity and positive for erythema around the AV fistula though improving. Lab and Diagnostics Result Diagram: 05/03/17 0320 05/03/17 0320 X-Rays, CTs and MRIs X-RAY CHEST ONE VIEW, PORTABLE IMPRESSION: No acute disease Dictated by: John Alexander M.D. on 05/01/2017 at 15:28 US DUPLEX DOPPLER OF DIALYSIS SHUNT IMPRESSION: There is clot in the venous limb of the vessels involved with a graft. This involves the cephalic vein with clot along the level of the arm. More centrally towards the shoulder the cephalic vein becomes patent and compressible. Dictated by: Derick Baig M.D. on 05/01/2017 at 17:21 Plan Impression 1. Acute kidney injury on chronic kidney disease stage 4 secondary to intravascular volume depletion. 2. Hyperosmolar hyponatremia. resolved. 3. Hyperkalemia secondary to insulin insufficiency, hyperglycemia, and metabolic acidosis. Resolved. 4. DKA. 5. Skin and soft tissue infection. 6. Type 2 diabetes. 7. History of hypertension. 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 9. Anion gap metabolic acidosis secondary to ketoacidosis and uremia. 10. Clotted AVF. 11. Renal osteodystrophy Plan: Continue supportive treatment. d/c IVF. Continue IV abx. Continue vitD3, calcitriol and sodium bicarb. Once infection subsides, will consult IR to perform fistulogram and angioplasty , planned to proceed on Saturday. Madelyn Olivas MD May 03, 2017 12:54
--- NOTE | 2017-05-03 13:52 | PCM.PNMED ---
Subjective Date of Service May 03, 2017 Subjective Patient is doing well. His left arm is less red and painful today. He denies any fevers, chills. No cough, chest pain, or shortness of breath. No nausea, or diarrhea. No overnight events. Exam Vital Signs Vital Sign - Last Date Time Temp Pulse Resp B/P Pulse Ox O2 Delivery O2 Flow Rate FiO2 05/03/17 12:23 36.8 74 18 152/55 98 Room Air Intake and Output 05/02/17 05/02/17 05/03/17 Cumulative From/Thru 15:00 23:00 07:00 05/01/17 13:45 - 05/03/17 05:43 Intake Total 3952 ml 1103 ml 9178 ml Output Total 1400 ml 1625 ml 4600 ml Balance 2552 ml -522 ml 4578 ml Intake Oral 250 ml 200 ml 930 ml IV Total 3702 ml 903 ml 8248 ml Output Urine Total 1400 ml 1625 ml 4600 ml # Voids 6 7 # Bowel Movements 0 0 Exam Alert and oriented -3, no distress. Fluent speech Anicteric sclera. Lungs are clear with normal rate and effort Heart is regular without murmur gallop or rub Abdomen soft nontender, flat Extremities are free of edema. Skin is free of rash or lesions. Left arm AV fistula area is much less red and warm today but still somewhat red. Lab and Diagnostics Result Diagram: 05/03/17 0320 05/03/17 0320 X-Rays, CTs and MRIs X-RAY CHEST ONE VIEW, PORTABLE IMPRESSION: No acute disease Dictated by: John Alexander M.D. on 05/01/2017 at 15:28 US DUPLEX DOPPLER OF DIALYSIS SHUNT IMPRESSION: There is clot in the venous limb of the vessels involved with a graft. This involves the cephalic vein with clot along the level of the arm. More centrally towards the shoulder the cephalic vein becomes patent and compressible. Dictated by: Derick Baig M.D. 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 #. Diabetic ketoacidosis secondary to left arm cellulitis in a type II diabetic , present remission, resolved. -Initial Anion gap 31, venous pH 7.2 We will continue to increase his glargine for improved control. #. Acute kidney injury on chronic kidney disease stage IV secondary to prerenal azotemia secondary to DKA with polyuria, vomiting and poor by mouth intake, present on admission, active and improving. -Continue with IV fluids as above. We will continue to monitor BMP. -Discussed case with Dr. Davis, and patient does not require dialysis at this time We will continue IV fluids at a set rate of 75 per hour, normal saline. No change to medical management. #. Left arm cellulitis, present on admission, active and improving. -Blood cultures obtained, remain negative. -Procalcitonin ordered -Patient given Vancomycin and Zosyn in the ED. Will continue Vancomycin but will switch to Cefepime given the patient's OG. No change in medical management. Anticipate one additional day of IV antibiotics and possible discharge home with by mouth antibiotics on Saturday. #. Hypovolemic hyponatremia, partially due to pseudohyponatremia due to hyperglycemia as well as dehydration, present on admission, active and improving. -IVF as above, decrease to 75 per hour. No change in medical plan. $. 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 The plan is to pursue this outpatient after the acute hospitalization and treatment of cellulitis. #. Elevated troponin of uncertain significance, present on admission, active -Likely secondary to demand ischemia from DKA and cellulitis. -We will recheck tomorrow. Patient is denying any chest pain. Follow clinically, no further workup at this time. CODE STATUS: DNR/DNI, confirmed with the patient today. Patient is admitted under inpatient status with expected length of stay greater than 2 midnights due to severity of presenting symptoms, risk of adverse event, and complexity of treatment plan. Possible discharge home on by mouth antibiotics tomorrow, Saturday, May 04. VTE Prophylaxis: Sub-Q Heparin (Unfractionated) VTE Mechanical Devices: Intermittant Pneumatic CD Resuscitation Status: DNR/DNI:Do Not Resuscitate/Intubate Prieto Collier MD May 03, 2017 13:52
--- NOTE | 2017-05-03 14:04 | NUR ---
NUTRITION FOLLOW-UP: ASSESS: Pt is an 86yo M admitted for hyperglycemia and left arm cellulitis. BG under better control. Diet was advanced to heart healthy/consistent carb. Tolerating PO well. Nephrology is following for OG. 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 Ca 7.9, Alb 2.7 MEDS: Reviewed. GI: 0 BM SKIN: Fuentes 18, arm cellulitis CURRENT WTS: 65.2kg, BMI 21.2kg/m2, IBW 72.7kg, admit wt 62.1kg EST. NEEDS: OG Kcals: 1630-1955kcal/day (25-30kcal/kg) Pro: 65-80g/day (1.0-1.2g/kg) NUTRITION DIAGNOSIS: 1.) Inadequate oral intake related to decreased ability to consume sufficient energy as evidenced by current NPO status--IMPROVING 2.) Altered nutrition related lab values related to endocrine dysfunction as evidence by elevated BG levels and A1C of 8.4. NUTRITION INTERVENTION: 1.) Continue current diet, will monitor for PO intake/tolerance 2.) Pt does not meet IPDE criteria at this time. If DM diet education required, please order IPDE. Per chart review pt has had DM diet education in the past. MONITOR / EVAL: PO, labs, GI, wt, POC, nutrition status. Will continue to monitor per moderate nutrition risk guidelines
[2017-05-03] MEDS: Vancomycin Inj 500 MG in 0.9% Sodium Chloride 100 ML IV SCH (14:15)
--- NOTE | 2017-05-03 15:24 | NUR ---
Social Work: Multidisciplinary Rounds Pt discussed in am rounds; sw status remains unchanged. Anticipate discharge home when medically stable. [employer] to continue to follow to assess for further d/c needs and r/o IV ABX ANTOINE Pablo
[2017-05-03] MEDS ORDERED: Vancomycin Inj 750 MG in 0.9% Sodium Chloride 250 ML IV SCH (17:00)
--- NOTE | 2017-05-03 19:40 | NUR ---
Blood sugar Cardiac: Pt denies CP, tele SR 50-60s s with 1st degree HB. Tele DC'd this AM. Resp: Pt denies SOB, SpO2 97-100% on RA GI/: pt denies n/v/d, Blood sugars 190s B/L, down to 160 after the 5u lantus. Neuro: A&Ox3, MCCURDY
[2017-05-03] MEDS ORDERED: Insulin GLARgine 100 Unit/mL Syringe SUBQ SCH (21:00)
--- NOTE | 2017-05-03 23:14 | NUR ---
BLOOD SUGARS Pt's BS was 191, 10 units Lantus given, no correctional. VSS, no pain, uneventful evening, no other issues noted @ this time.
[2017-05-04 04:02] VITALS: BP 149/77; PULSE 59; RESP 18; O2SAT 98
--- NOTE | 2017-05-04 05:56 | NUR ---
TRANSFER Pt transferred to [facility] room 3031 with all belongings, report given to Martina Bauer RN. Pt's VSS, no pain.
[2017-05-04 06:41] VITALS: BP 164/69; PULSE 61; RESP 18; O2SAT 100
--- NOTE | 2017-05-04 06:47 | NUR ---
Transfer to [facility] Pt transfered to [facility] from [facility] on wheelchair at 0635, alert and oriented,denies any pain/SOB/N/V/fever/chills. BP164/69 HR61 SPO2 100% on RA, T36.3, RR18. Fistula at left upper arm with redness, edema, no pain or drainage. Pt oriented to call light. Care ongoing.
[2017-05-04] MEDS: Heparin 5,000 Unit/mL Inj SUBQ SCH (08:36)
[2017-05-04] MEDS: Insulin LISPRO 300 Unit/3 mL Inj SUBQ SCH ×2 (08:38→11:42)
[2017-05-04] MEDS ORDERED: 0.9% Sodium Chloride 250 ML ONE (09:42)
[2017-05-04] MEDS: Vancomycin Inj 500 MG in 0.9% Sodium Chloride 100 ML IV SCH (09:50)
[2017-05-04] MEDS: Vancomycin Dose per Pharmacist XX SCH (09:50)
[2017-05-04] MEDS: SODIUM CHLORIDE 0.9% IV SCH (11:10)
[2017-05-04] MEDS: CEFEPIME IV SCH (11:10)
--- NOTE | 2017-05-04 11:48 | NUR ---
Hypoglycemia Pt BG check at approx 1115 was 59. Pt given apple juice, and yogurt and grapes ordered for lunch. BG recheck at approx 1145 was 64. Pt had just finished yogurt and was working on eating grapes. Will continue to monitor. Addendum: 05/04/17 at 1220 by MIRIAM FARFAN RN BG at approx 1215 now 112, pt ate lunch and reports feeling more energetic. aware. Care continues.
--- NOTE | 2017-05-04 12:14 | PCM.DIMED ---
Discharge Instructions Date of Service May 04, 2017 Dates of Hospitalization May 01, 2017 at 16:53 Discharge Diagnosis Discharge Diagnosis #. Diabetic ketoacidosis , resolved. #. Acute kidney injury on chronic kidney disease stage IV s, improved. We will continue IV fluids at a set rate of 75 per hour, normal saline. No change to medical management. #. Left arm cellulitis, improved. #. Hypovolemic hyponatremia, improved. #. 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 Call your provider Call your provider for: Fever or Chills Patient Instructions Patient Instructions Call Dr House Saturday or Saturday to see about fistula repair. Follow-up Provider: Yovany Diamond MD Follow-up with PCP in: 1 week Prieto Collier MD May 04, 2017 12:14
--- NOTE | 2017-05-04 12:56 | NUR ---
Resumed care from Jesse Norton
--- NOTE | 2017-05-04 13:36 | NUR ---
Discharge IV discontinued fully intact. Discharge instructions explained to patient and daughter. Both verbalize understanding and agree to plan of care. Brought down to personal car via WC.
--- NOTE | 2017-05-04 13:39 | PCM.DC.MED ---
Discharge Summary Date of Service May 04, 2017 Dates of Hospitalization Date of Hospital Admission May 01, 2017 at 16:53 Date of Discharge: May 04, 2017 Providers: Admitting Physician: Prieot Collier MD Primary Care Physician: Yovany Diamodn MD Attending Physician: Prieto Collier MD Diagnosis at Time of Discharge Diagnosis at Time of Discharge #. Diabetic ketoacidosis , resolved. #. Acute kidney injury on chronic kidney disease stage IV s, improved. We will continue IV fluids at a set rate of 75 per hour, normal saline. No change to medical management. #. Left arm cellulitis, improved. #. Hypovolemic hyponatremia, improved. #. 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 Consultations Nephrology, Dr Tao Procedures XRay, CTs & MRIs X-RAY CHEST ONE VIEW, PORTABLE IMPRESSION: No acute disease Dictated by: John Alexander M.D. on 05/01/2017 at 15:28 US DUPLEX DOPPLER OF DIALYSIS SHUNT IMPRESSION: There is clot in the venous limb of the vessels involved with a graft. This involves the cephalic vein with clot along the level of the arm. More centrally towards the shoulder the cephalic vein becomes patent and compressible. Dictated by: Derick Baig M.D. 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 Patient has been seen twice at the clinic and was prescribed some Keflex as well as doxycycline with improvement of his cellulitis however, this morning his noticed that his left arm was significantly more erythematous and the patient stated it was much more painful. Patient denies any fevers, chills, drenching sweats but has noted nausea after starting his antibiotics and has been vomiting quite frequently. He has also noticed a decrease in his appetite and decreased by mouth intake. The patient is not currently on dialysis and he is followed by . Per the patient measured his blood sugar at home it was 599. In the emergency department his vital signs were stable. His laboratory evaluation was notable for a blood sugar of 716, venous pH of 7.2, potassium of 5.9, and anion gap of 31 and normal lactate and worsening creatinine of 3.19. He was initiated on 2 L normal saline, vancomycin and Zosyn. Dr. Davis of nephrology was consulted by emergency department for evaluation of his worsening kidney function. 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 #. Diabetic ketoacidosis secondary to left arm cellulitis in a type II diabetic , present remission, resolved. -Initial Anion gap 31, venous pH 7.2 History of with insulin drip for approximately 12 hours and this did improve. He noticed an gap acidosis and uremia but cleared ketones. His hyperglycemia also resolved. #. Acute kidney injury on chronic kidney disease stage IV secondary to prerenal azotemia secondary to DKA with polyuria, vomiting and poor by mouth intake, present on admission, active and improving. -Continue with IV fluids as above. We will continue to monitor BMP. -Discussed case with Dr. Davis, and patient does not require dialysis at this time Improved with IV fluids and expected management. #. Left arm cellulitis, present on admission, active and improving. -Blood cultures obtained, remain negative. -Procalcitonin ordered -Patient given Vancomycin and Zosyn in the ED. Will continue Vancomycin but will switch to Cefepime given the patient's OG. No change in medical management. Anticipate one additional day of IV antibiotics and possible discharge home with by mouth antibiotics on Saturday The patient improved on IV antibiotics. He became clear that he was on Keflex and doxycycline initially but had a lot of GI side effects from the doxycycline. Nares MRSA was negative. #. Hypovolemic hyponatremia, partially due to pseudohyponatremia due to hyperglycemia as well as dehydration, present on admission, active and improving. -IVF as above, decrease to 75 per hour. No change in medical plan. This improved with fluids. #. 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 Nephrology will contact his primary b2b sales professional Dr. Horton to help arrange declotting of fistula for some time next week. #. Elevated troponin of uncertain significance, present on admission, active -Likely secondary to demand ischemia from DKA and cellulitis. -We will recheck tomorrow. Patient is denying any chest pain. Follow clinically, no further workup at this time. No clinical problems during hospitalization. CODE STATUS: DNR/DNI, confirmed with the patient today. Exam Vital Signs (Last) Date Time Temp Pulse Resp B/P Pulse Ox O2 Delivery O2 Flow Rate FiO2 05/04/17 06:41 36.3 61 18 164/69 100 Room Air Exam Patient was seen and examined the day of discharge. Test 05/01/17 14:56 05/01/17 16:56 05/01/17 19:00 05/02/17 02:30 Neutrophils (%) (Auto) 71.9% (40-74) Lymphocytes (%) (Auto) 20.0% (14-46) Monocytes (%) (Auto) 7.5% (4-12) Eosinophils (%) (Auto) 0.1% (0-5) Basophils (%) (Auto) 0.4% (0-3) Hemoglobin A1c 8.4% (4.8-5.6) Osmolality 334 (275-300) Troponin T 0.041ug/L (0.0-0.011) Urine Color Straw (YELLOW) Urine Appearance Clear (CLEAR,HAZY) Urine pH 5.5 (5.0-8.0) Urine Specific Holliday 1.020 (1.003-1.035) Urine Protein Negativemg/dL (NEG,TRACE) Urine Glucose (UA) 1000mg/dL (NEGATIVE) Urine Ketones 15mg/dL (NEGATIVE) Urine Occult Blood Small (NEGATIVE) Urine Nitrite Negative (NEGATIVE) Urine Bilirubin Negative (NEGATIVE) Urine Urobilinogen Normalmg/dL (NORMAL) Urine Leukocyte Esterase Negative (NEGATIVE) Urine RBC 0-2/hpf (0-2) Urine WBC 0-5/hpf (0-5) Urine Epithelial Cells None/hpf (NONE-MOD) Urine Crystals None seen (NONE SEEN) Urine Bacteria Few/hpf (NONE-FEW) Urine Hyaline Casts None/lpf (NONE) Urine Granular Casts None seen (NONE SEEN) Urine Waxy Casts None seen (NONE SEEN) Urine Red Blood Cell Casts None seen (NONE SEEN) Urine White Blood Cell Casts None seen (NONE SEEN) Urine Mucus None seen (None Seen) Urine Trichomonas None seen (NONE SEEN) Urine Yeast None (NONE SEEN) Urinalysis Comment None Urine Culture Reflexed Not indicated Lactic Acid Level 1.7mmol/L (0.4-2.0) Random Vancomycin Level 8.3ug/mL Rx Test 05/02/17 07:25 05/02/17 14:13 05/03/17 03:20 Phosphorus Level 4.2mg/dL (2.5-4.9) Magnesium Level 2.0mg/dL (1.6-2.6) Ketones Negative (Negative) White Blood Count 5.4th/mm3 (3.8-10.1) Red Blood Count 3.05mil/mm3 (4.40-5.80) Hemoglobin 9.3g/dL (13.8-17.2) Hematocrit 27.8% (41.0-50.0) Mean Corpuscular Volume 91.1fL (81-100) Mean Corpuscular Hemoglobin 30.5pg (27.0-35.0) Mean Corpuscular Hemoglobin Concent 33.5% (32.0-37.0) Red Cell Distribution Width 13.6% (12.3-15.4) Platelet Count 332bil/L (150-400) Sodium Level 132mEq/L (134-144) Potassium Level 4.2mEq/L (3.5-5.2) Chloride Level 103mEq/L (97-108) Carbon Dioxide Level 15mmol/L (18-29) Blood Urea Nitrogen 46mg/dL (8-27) Creatinine 2.36mg/dL (0.76-1.27) Estimat Glomerular Filtration Rate 28mL/min (>59) Glucose Level 215mg/dL (60-99) Calcium Level 7.9mg/dL (8.5-10.1) Total Bilirubin 0.5mg/dL (0.0-1.2) Aspartate Amino Transf (AST/SGOT) 24U/L (0-50) Alanine Aminotransferase (ALT/SGPT) 19U/L (0-44) Alkaline Phosphatase 103U/L (25-160) Total Protein 5.1g/dL (6.4-8.4) Albumin 2.7g/dL (3.4-5.0) Microbiology Results Nares MRSA screen negative Discharge Medications Discharge Medications Aspirin (Aspirin) 81 Mg Tablet 81 MG PO DAILY (Reported) Calcitriol (Rocaltrol) 0.25 Mcg Capsule 1 MCG PO DAILY (Reported) Cephalexin (Cephalexin) 250 Mg Capsule 250 MG PO TID (Reported) Cholecalciferol (Vitamin D3) (Vitamin D) 1,000 Unit Capsule 1,000 UNIT PO DAILY (Reported) Gabapentin (Gabapentin) 400 Mg Capsule 400 MG PO BID (Reported) Insulin Glargine (Lantus U100 Solostar Insulin Pen) 100 Unit/1 Ml Insuln.pen 10 UNIT SUBQ QAM Prescribed by: MERARY YU MD Levothyroxine (Levothyroxine) 50 Mcg Tablet 50 MCG PO DAILY (Reported) Multivitamin (Multi Vitamin Daily) 1 Each Tablet 1 EACH PO DAILY (Reported) Sertraline HCl (Sertraline) 50 Mg Tablet 50 MG PO DAILY (Reported) Simvastatin (Simvastatin) 10 Mg Tablet 20 MG PO HS (Reported) Sodium Bicarbonate (Sodium Bicarbonate) 650 Mg Tablet 650 MG PO TID (Reported) Tamsulosin (Flomax) 0.4 Mg Capsule 0.4 MG PO DAILY (Reported) As needed Diazepam (Valium) 5 Mg Tablet 5 MG PO HS PRN PRN Insomnia (Reported) Insulin Aspart (NovoLOG U-100 Pen) 100 Unit/Ml Insuln.pen 0-5 UNITS SUBQ TIDWM PRN PRN sliding scale (Reported) Followup Plan Disposition: Home Patient Instructions Call Dr House Saturday or Saturday to see about fistula repair. Follow-up Provider: Yovany Diamond MD Follow-up with PCP in: 1 week Time spent 45 minutes Prieto Collier MD May 04, 2017 13:39
--- NOTE | 2017-05-04 14:31 | PCM.PNNEPH ---
Subjective Date of Service May 04, 2017 Subjective Feeling better, likely to be d/c' home today. Exam Vital Signs Vital Sign - Last Date Time Temp Pulse Resp B/P Pulse Ox O2 Delivery O2 Flow Rate FiO2 05/04/17 06:41 36.3 61 18 164/69 100 Room Air Intake and Output 05/03/17 05/03/17 05/04/17 Cumulative From/Thru 15:00 23:00 07:00 05/01/17 13:45 - 05/04/17 04:34 Intake Total 1503 ml 230 ml 59385 ml Output Total 900 ml 900 ml 6400 ml Balance 603 ml -670 ml 4511 ml Intake Oral 880 ml 160 ml 1970 ml IV Total 623 ml 70 ml 8941 ml Output Urine Total 900 ml 900 ml 6400 ml # Voids 7 # Bowel Movements 1 1 Exam General appearance: Awake, alert, oriented x3. No acute distress. HEENT: Mild pallor. Anicteric sclerae. Atraumatic. Dry mucous membranes. PERRLA. No JVD. No lymphadenopathy. No thyroid enlargement. Heart: Regular rhythm. Normal S1, S2. No murmurs, rubs, or gallops. Lungs: Clear to auscultation bilaterally. No wheezing. No rhonchi. Abdomen: Soft, scaphoid abdomen. Nontender, nondistended. No hepatosplenomegaly. Extremities: No lower extremity edema. Positive for swelling on the left upper extremity and positive for erythema around the AV fistula though improving. Lab and Diagnostics Result Diagram: 05/03/17 0320 05/03/17 0320 Microbiology Nares MRSA screen negative X-Rays, CTs and MRIs X-RAY CHEST ONE VIEW, PORTABLE IMPRESSION: No acute disease Dictated by: John Alexander M.D. on 05/01/2017 at 15:28 US DUPLEX DOPPLER OF DIALYSIS SHUNT IMPRESSION: There is clot in the venous limb of the vessels involved with a graft. This involves the cephalic vein with clot along the level of the arm. More centrally towards the shoulder the cephalic vein becomes patent and compressible. Dictated by: Derick Baig M.D. on 05/01/2017 at 17:21 Plan Impression 1. Acute kidney injury on chronic kidney disease stage 4 secondary to intravascular volume depletion. 2. Hyperosmolar hyponatremia. resolved. 3. Hyperkalemia secondary to insulin insufficiency, hyperglycemia, and metabolic acidosis. Resolved. 4. DKA. 5. Skin and soft tissue infection. 6. Type 2 diabetes. 7. History of hypertension. 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 9. Anion gap metabolic acidosis secondary to ketoacidosis and uremia. 10. Clotted AVF. 11. Renal osteodystrophy Plan: Per renal standpoint, he can be d/c'd home. 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 Continue vitD3, calcitriol and sodium bicarb. Once infection subsides, will consult IR to perform fistulogram and angioplasty. Madelyn Olivas MD May 04, 2017 14:31
--- NOTE | 2017-05-04 15:50 | NUR ---
Social Work: Discharge Data: Pt is on day 3 of hospitalization. EMR reviewed. Pt discussed in rounds, MD states no d/c planning needs. D/C order are in, pt discharged home via POV, no d/c planning need. Assessment: Pt who is independent at baseline, capable of self care at this time. Plan: Pt discharged home via POV today. No d/c planning need. ANTOINE Serna
[2017-05-05] MEDS ORDERED: Vancomycin Serum Trough XX ONE (07:30)
== END 2017-05-04 13:30 | disposition home or self-care (01) | DRG 314 ==
LOC: SED 13:42 → OSC 16:53 → PCC 18:35 → CCU 20:00 → PCC 05-02 16:55 → MPC 05-04 06:42
PROVIDERS: ADMIT Hospitalist; ATTEND Hospitalist
PROC: 4A033R1 Measurement of Arterial Saturation, Peripheral, Percutaneous Approach (ICD-10-PCS; principal; 2017-05-01)
DX: T82.7XXA Infection and inflammatory reaction due to other cardiac and vascular devices, implants and grafts, initial encounter (principal); E13.10 Other specified diabetes mellitus with ketoacidosis without coma; N18.4 Chronic kidney disease, stage 4 (severe); N17.9 Acute kidney failure, unspecified; L03.114 Cellulitis of left upper limb; E87.1 Hypo-osmolality and hyponatremia; T82.818A Embolism due to vascular prosthetic devices, implants and grafts, initial encounter; I12.9 Hypertensive chronic kidney disease with stage 1 through stage 4 chronic kidney disease, or unspecified chronic kidney disease; Z66 Do not resuscitate; E03.9 Hypothyroidism, unspecified; E87.5 Hyperkalemia; Z79.4 Long term (current) use of insulin